=== PATIENT | male | born 1990 | race African-American/Black ===

== ENCOUNTER 2021-09-30 01:15 | Emergency (ER) | payer MEDICAID ==
[~2021-09-30] VITALS: Ht 180.3 cm; Wt 77.0 kg
[2021-09-30 01:17] VITALS: BP 150/90
[2021-09-30] MEDS ORDERED: HYDR-4001 MT (01:50)
[2021-09-30] MEDS ORDERED: HYDROCODONE/ACETAMINOPHEN 5/325MG TABLET PO ONE (02:00)
== END 2021-09-30 02:40 | disposition home or self-care (01) ==
LOC: EDSEX 01:15 → ER 01:52
DX: S81.832A Puncture wound without foreign body, left lower leg, initial encounter (principal); X93.XXXA Assault by handgun discharge, initial encounter; Y93.89 Activity, other specified; Y92.89 Other specified places as the place of occurrence of the external cause
CPT/HCPCS: 99283

== ENCOUNTER 2023-11-02 15:20 | Emergency (ER) | payer MEDICAID, OTHER ==
[~2023-11-02] VITALS: Ht 180.3 cm; Wt 75.0 kg
[~2023-11-02 15:20] MED LIST: HYDR-4001 MT
[2023-11-02 15:26] VITALS: BP 178/113; PULSE 100; RESP 16; TEMP 98; O2SAT 99
[2023-11-02] MEDS ORDERED: IBUP-2028 MT (15:44)
[2023-11-02] MEDS ORDERED: CETI10TA6 MT (15:44)
[2023-11-02] MEDS ORDERED: CEPH500C2 MT (15:44)
[2023-11-02] MEDS ORDERED: BO1 TP (15:44)
[2023-11-03] MEDS ORDERED: SULF1TAB48 MT (18:35)
== END 2023-11-02 15:51 | disposition home or self-care (01) ==
LOC: ER 15:20
DX: S70.362A Insect bite (nonvenomous), left thigh, initial encounter (principal); M79.89 Other specified soft tissue disorders; I10 Essential (primary) hypertension; Z79.899 Other long term (current) drug therapy; W57.XXXA Bitten or stung by nonvenomous insect and other nonvenomous arthropods, initial encounter; Y93.89 Activity, other specified; Y92.89 Other specified places as the place of occurrence of the external cause; Y99.8 Other external cause status
CPT/HCPCS: 99281; 99283

== ENCOUNTER 2023-11-03 18:25 | Emergency (ER) | payer OTHER ==
[~2023-11-03] VITALS: Ht 182.9 cm; Wt 87.0 kg
[~2023-11-03 18:25] MED LIST changes: +BO1 TP; +CEPH500C2 MT; +CETI10TA6 MT; +IBUP-2028 MT
[2023-11-03 18:34] VITALS: TEMP 98.2; O2SAT 100
[2023-11-03] MEDS ORDERED: SULF1TAB48 MT (18:35)
[2023-11-03 18:45] VITALS: BP 167/121; PULSE 93; RESP 16
[2023-11-03] MEDS: CEPHALEXIN 250MG CAPSULE PO ONE (18:45)
[2023-11-03] MEDS: SULFAMETHOXAZOLE/TRIMETHOPRIM 800/160MG TABLET PO ONE (18:45)
[2023-11-03] MEDS: IBUPROFEN 600MG TABLET PO ONE (18:45)
== END 2023-11-04 00:57 | disposition home or self-care (01) ==
LOC: ER 18:25
DX: S70.362A Insect bite (nonvenomous), left thigh, initial encounter (principal); B96.89 Other specified bacterial agents as the cause of diseases classified elsewhere; I10 Essential (primary) hypertension; Z98.890 Other specified postprocedural states; W57.XXXA Bitten or stung by nonvenomous insect and other nonvenomous arthropods, initial encounter; Y93.89 Activity, other specified; Y92.89 Other specified places as the place of occurrence of the external cause; Y99.8 Other external cause status
CPT/HCPCS: 99284